=== PATIENT | male | born 1995 | race African-American/Black ===

== ENCOUNTER 2019-11-15 15:16 | Emergency (ER) | payer MEDICARE, MEDICAID, SELFPAY ==
[2019-11-15 15:21] VITALS: BP 165/100; PULSE 60; RESP 16; TEMP 36.9; O2SAT 99
[2019-11-15 15:42] LABS: Basophils Absolute Auto 0.1 K/mm3 (0.0-0.1); Basophils Percent Auto 0.7 % (0.2-1.2); Eosinophils Absolute Auto 0.2 K/mm3 (0-0.3); Eosinophils Percent Auto 1.6 % (0-4.4); Hemoglobin 12.8 g/dL (14.0-18.0); Immature Granulocyte Absolute 0.45 K/mm3 (0.00-0.031); Immature Granulocyte Percent A 4.5 % (0-0.5); Immature Reticulocyte Fraction 17.4 % (3.0-15.9); Lymphocytes Absolute Auto 1.77 K/mm3 (0.9-3.2); Lymphocytes Percent Auto 17.7 % (18.3-44.2); Mean Corpuscular HGB Conc 32.8 g/dl (32-36); Mean Corpuscular Hemoglobin 22.8 pg (26-34); Mean Corpuscular Volume 69.4 fl (80-100); Mean Platelet Volume 11.5 fl (7.4-10.4); Monocytes Absolute Auto 0.6 K/mm3 (0.1-0.6); Monocytes Percent Auto 5.6 % (2.6-8.5); Neutrophils Percent Auto 69.9 % (45.5-73.1); Platelet Count Result 189 k/mm3 (150-375); Red Blood Count 5.62 M/mm3 (4.6-6.20); Reticulocyte Hemoglobin Conten 28.4 pg (28.2-35.7); Reticulocyte Percent 1.88 % (0.7-4.3); Reticulocytes Absolute 0.11 B/L (32.2-175.7)
[2019-11-15 15:52] LABS: Blood Urea Nitrogen 12 mg/dL (9-20); Calcium 8.6 mg/dL (8.4-10.2); Carbon Dioxide 30 mmol/L (22-30); Chloride 104 mmol/L (98-107); Estimated CRCL calculation 102 ml/min; Estimated Glomerular Filt Rate > 60; Glucose 94 mg/dL (75-110); Lactate Dehydrogenase 489 U/L (313-618); Potassium 4.7 mmol/L (3.4-5.0); Sodium 140 mmol/L (137-145)
[2019-11-15] MEDS: HYDROMORPHONE HCL 1 MG/ML INJ 0.5 MG IV PUSH ×2 (16:18→18:40)
[2019-11-15] MEDS: KETOROLAC 30 MG/ML VIAL (*BKC) IV PUSH (16:19)
[2019-11-15 16:27] LABS: Alanine Aminotransferase 16 U/L (4-50); Alkaline Phosphatase 64 U/L (38-126); Aspartate Amino Transferase 31 U/L (17-59); Bilirubin,Total 0.5 mg/dL (0.2-1.3)
[2019-11-15] MEDS: SODIUM CHLORIDE 0.9% IV 1,000 ML 999 ML IV CONT (16:27)
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
== END 2019-11-15 19:10 | disposition home or self-care (01) ==
PROVIDERS: Physician Assistant; Emergency Provider Emergency Medicine
DX: D57.00 Hb-SS disease with crisis, unspecified (principal); F17.210 Nicotine dependence, cigarettes, uncomplicated
CPT/HCPCS: 36415; 80048; 80076; 83615; 85025; 85046; 96365; 96375; 96376; 99284; J0131; J1170; J1885; J7030